=== PATIENT | female | born 1975 | race Caucasian/White ===

== ENCOUNTER 2022-07-31 16:55 | Inpatient (IN) | payer OTHER ==
[~2022-07-31] VITALS: Ht 162.6 cm; Wt 79.7 kg
[2022-07-31 17:33] LABS: BASOPHILS ABSOLUTE AUTO 0.03 K/mm3 (0.00-0.23); BASOPHILS PERCENT AUTO 0 % (0-2); EOSINOPHILS ABSOLUTE AUTO 0.01 K/mm3 (0.00-0.68); EOSINOPHILS PERCENT AUTO 0 % (0-6); IMMATURE GRAN ABSOLUTE AUTO 0.06 K/mm3 (0.00-0.10); IMMATURE GRAN PERCENT AUTO 1 % (0-1); LYMPHOCYTES ABSOLUTE AUTO 1.39 K/mm3 (0.84-5.20); LYMPHOCYTES PERCENT AUTO 14 % (21-46); MONOCYTES ABSOLUTE AUTO 1.14 K/mm3 (0.16-1.47); MONOCYTES PERCENT AUTO 12 % (4-13); Mean Corpuscular HGB 29.1 pg (26.0-34.0); Mean Corpuscular HGB Conc 29.9 g/dL (31.5-36.5); Mean Corpuscular Volume 97 fL (80-100); Mean Platelet Volume 12.1 fL (9.1-12.4); NEUTROPHILS ABSOLUTE AUTO 7.31 K/mm3 (1.96-9.15); NEUTROPHILS PERCENT AUTO 74 % (41-73); Platelet Count 113 K/mm3 (150-400); RDW Coefficient Variation 16.7 % (11.7-14.2); RDW Standard Deviation 58.6 fL (35.1-46.3); Red Blood Cell Count 1.48 M/mm3 (3.80-5.20); White Blood Cell Count 9.94 K/mm3 (4.00-11.30)
[2022-07-31 17:40] LABS: Hemoglobin 4.3 g/dL (11.5-16.0)
[2022-07-31 17:41] LABS: Hematocrit 14.4 % (33.0-51.0)
[2022-07-31 17:57] LABS: Magnesium, Blood 1.9 mg/dL (1.6-2.4)
[2022-07-31 18:06] LABS: International Normalized Ratio 1.46
[2022-07-31 18:06] LABS: Albumin, Blood 2.8 g/dL (3.4-5.0); Albumin/Globulin Ratio 0.8 (0.8-1.8); Bilirubin, Total 2.3 mg/dL (0.1-1.0); Bun/Creatinine Ratio 10.4 (12.0-20.0); Calcium, Blood 7.7 mg/dL (8.5-10.1); Creatinine, Blood 1.06 mg/dL (0.40-1.00); Globulin, Blood 3.4 g/dL (2.2-4.0); Potassium, Blood 3.7 mmol/L (3.5-5.5); Total Protein, Blood 6.2 g/dL (6.4-8.2)
--- NOTE | 2022-07-31 20:30 | NUR ---
PATIENT ARRIVED TO ICU 10 AT THIS TIME. ATTACHED TO MONITORS. BLOOD INFUSING. D5 1/2NS WITH K+ INFUSING. PATIENT SHAKEY AND PALE. ALERT AND ORIENTED X 4. FAMILY AT BEDSIDE. THIS RN ENCOURAGED AND ANSWERED ALL QUESTIONS. VSS.
[2022-07-31 21:31] LABS: Hematocrit 13.2 % (33.0-51.0); Hemoglobin 4.4 g/dL (11.5-16.0)
[2022-08-01 03:16] LABS: Hemoglobin 6.8 g/dL (11.5-16.0); Mean Corpuscular HGB 29.3 pg (26.0-34.0); Mean Platelet Volume 11.4 fL (9.1-12.4); NRBC ABSOLUTE 0.02 K/mm3 (0.00-0.02); NRBC Auto 0.6 /100 WBC (0.0-0.2); RDW Coefficient Variation 14.7 % (11.7-14.2); RDW Standard Deviation 45.9 fL (35.1-46.3); Red Blood Cell Count 2.32 M/mm3 (3.80-5.20); White Blood Cell Count 3.58 K/mm3 (4.00-11.30)
[2022-08-01 03:22] LABS: Mean Corpuscular Volume 86 fL (80-100)
[2022-08-01 03:23] LABS: Platelet Count 43 K/mm3 (150-400)
[2022-08-01 03:33] LABS: Albumin, Blood 2.2 g/dL (3.4-5.0); Albumin/Globulin Ratio 0.8 (0.8-1.8); Bilirubin, Total 3.6 mg/dL (0.1-1.0); Bun/Creatinine Ratio 14.2 (12.0-20.0); Calcium, Blood 7.1 mg/dL (8.5-10.1); Creatinine, Blood 0.78 mg/dL (0.40-1.00); Globulin, Blood 2.9 g/dL (2.2-4.0); Potassium, Blood 3.1 mmol/L (3.5-5.5); Total Protein, Blood 5.1 g/dL (6.4-8.2)
--- NOTE | 2022-08-01 05:24 | NUR ---
SHIFT SUMMARY: NEURO: CIWA PROTOCOL FOR ALCOHOL WITHDRAWAL. LAST CIWA 7. PATIENT HAVING TREMORS AND WEAKNESS. NO DIZZINESS. NO SEIZURES NOTED. ALERT AND ORIENTED X4 CARDIAC: VSS, SR, QT ELONGATED. AFEBRILE RESP: O2 >98% ON RA GI: SOFT NON-DISTENDED ABDOMEN : USED BEDPAN SUCCESSFULLY X3. ADEQUATE UOP. VAGINAL BLEEDING STILL OCCURING. WATERY AND PINK. SKIN: PALE AND BRUISED OTHER: RECEIVED 4 UNITS PRBC OVERNIGHT
[2022-08-01 08:30] LABS: Hematocrit 22.4 % (33.0-51.0); Hemoglobin 7.8 g/dL (11.5-16.0); Mean Corpuscular HGB 29.8 pg (26.0-34.0); Mean Corpuscular HGB Conc 34.8 g/dL (31.5-36.5); Mean Corpuscular Volume 86 fL (80-100); Mean Platelet Volume 10.6 fL (9.1-12.4); RDW Coefficient Variation 15.5 % (11.7-14.2); RDW Standard Deviation 46.7 fL (35.1-46.3); Red Blood Cell Count 2.62 M/mm3 (3.80-5.20); White Blood Cell Count 3.49 K/mm3 (4.00-11.30)
[2022-08-01 08:35] LABS: Platelet Count 45 K/mm3 (150-400)
[2022-08-01 08:49] LABS: Bun/Creatinine Ratio 14.3 (12.0-20.0); Calcium, Blood 7.3 mg/dL (8.5-10.1); Creatinine, Blood 0.77 mg/dL (0.40-1.00); Magnesium, Blood 2.3 mg/dL (1.6-2.4); Phosphorus, Blood 1.6 mg/dL (2.5-4.9); Potassium, Blood 3.7 mmol/L (3.5-5.5)
[2022-08-01 10:11] LABS: D-Dimer, Quantitative 1.1 mg/L FEU (0.00-0.52); International Normalized Ratio 1.39; Prothrombin Time Results 14.3 Sec (9.7-11.5)
--- NOTE | 2022-08-01 10:36 | NUR ---
UPDATE PT CALLS FOR ASSITANCE TO COMMODE. PT TRANSFERS WITH MINIMAL ASSISTANCE. PT CONTINUES TO HAVE BLEEDING. PT SATURATED PAD WITH LIGHT RED BLOOD. PT DENIES ANY DIZZINESS, NAUSEA. BP STABLE. HR NSR 90'S. MILD TREMORS NOTED. WILL CONTINUE TO MONITOR CLOSELY
--- NOTE | 2022-08-01 13:33 | NUR ---
UPDATE PT UP TO BSC TO VOID. PAD IS SATURATED WITH LIGHT RED BLOOD AND TWO CLOTS NOTED. WILL CONTINUE TO MONITOR CLOSELY
[2022-08-01 15:12] LABS: Hematocrit 20.8 % (33.0-51.0); Hemoglobin 7.3 g/dL (11.5-16.0); Mean Corpuscular HGB 30.3 pg (26.0-34.0); Mean Corpuscular HGB Conc 35.1 g/dL (31.5-36.5); Mean Corpuscular Volume 86 fL (80-100); Mean Platelet Volume 11.1 fL (9.1-12.4); NRBC ABSOLUTE 0.02 K/mm3 (0.00-0.02); NRBC Auto 0.6 /100 WBC (0.0-0.2); RDW Coefficient Variation 16.3 % (11.7-14.2); RDW Standard Deviation 50.4 fL (35.1-46.3); Red Blood Cell Count 2.41 M/mm3 (3.80-5.20); White Blood Cell Count 3.36 K/mm3 (4.00-11.30)
[2022-08-01 15:28] LABS: D-Dimer, Quantitative 0.82 mg/L FEU (0.00-0.52); International Normalized Ratio 1.37; Prothrombin Time Results 14.1 Sec (9.7-11.5)
[2022-08-01 15:31] LABS: Platelet Count 44 K/mm3 (150-400)
--- NOTE | 2022-08-01 15:52 | NUR ---
UPDATE PT REMAINS ALERT AND ORIENTED. VS STABLE. HR NSR 90'S. BP STABLE. PT HAS DENIED ANY PAIN. PT CONTINUES TO HAVE VAGINAL BLEEDING. STATUS CHANGED TO PCU. REPORT HAS BEEN CALLED TO RANDELL RODGERS. PT TO BE TAKEN OVER BY . FAMILY NOTIFIED
--- NOTE | 2022-08-01 17:22 | NUR ---
SHIFT SUMMARY PT ARRIVED TO PCU APPROX. 1400 VIA WHEELCHAIR W/ FAMILY AT BEDSIDE. VSS. SHE DENIED FEELINGS OF PAIN, NAUSEA/VOMITTING, HEADACHE. NO VISIBLE SIGNS OF TREMORS AND SHE DENIED AGITATION. DW W/ 11/04 NS KCL RESTARTED PER ORDERS. NO VISIBLE SIGNS OF CLAMMINESS/SWEATING. SHE IS ALERT AND ORIENTED X 4, PT AND EMERSON WERE ORIENTED TO PCU ROOM. SHE DENIED FEELING LIGHTHEADEDNESS/DIZZY. IV IN RIGHT FOREARM IS SALINE LOCKED. PER REPORT SHE IS BR W/ BATHROOM PRIVILEGES. SEIZURE PRECAUTIONS IN PLACE. PT IS NOW EATING DINNER AND WATCHING T.V WITH HER EMERSON.
[2022-08-02 04:10] LABS: BASOPHILS ABSOLUTE AUTO 0.02 K/mm3 (0.00-0.23); BASOPHILS PERCENT AUTO 1 % (0-2); EOSINOPHILS ABSOLUTE AUTO 0.03 K/mm3 (0.00-0.68); EOSINOPHILS PERCENT AUTO 1 % (0-6); Hematocrit 21.5 % (33.0-51.0); Hemoglobin 7.2 g/dL (11.5-16.0); IMMATURE GRAN ABSOLUTE AUTO 0.02 K/mm3 (0.00-0.10); IMMATURE GRAN PERCENT AUTO 1 % (0-1); LYMPHOCYTES ABSOLUTE AUTO 0.88 K/mm3 (0.84-5.20); LYMPHOCYTES PERCENT AUTO 29 % (21-46); MONOCYTES ABSOLUTE AUTO 0.42 K/mm3 (0.16-1.47); MONOCYTES PERCENT AUTO 14 % (4-13); Mean Corpuscular HGB 29.5 pg (26.0-34.0); Mean Corpuscular HGB Conc 33.5 g/dL (31.5-36.5); Mean Corpuscular Volume 88 fL (80-100); NEUTROPHILS ABSOLUTE AUTO 1.66 K/mm3 (1.96-9.15); NEUTROPHILS PERCENT AUTO 55 % (41-73); RDW Coefficient Variation 16.6 % (11.7-14.2); RDW Standard Deviation 51.2 fL (35.1-46.3); Red Blood Cell Count 2.44 M/mm3 (3.80-5.20); White Blood Cell Count 3.03 K/mm3 (4.00-11.30)
[2022-08-02 04:21] LABS: Platelet Count 46 K/mm3 (150-400)
[2022-08-02 04:28] LABS: International Normalized Ratio 1.31; Prothrombin Time Results 13.5 Sec (9.7-11.5)
[2022-08-02 04:30] LABS: Albumin, Blood 2.1 g/dL (3.4-5.0); Albumin/Globulin Ratio 0.7 (0.8-1.8); Bilirubin, Total 1.9 mg/dL (0.1-1.0); Bun/Creatinine Ratio 10.9 (12.0-20.0); Creatinine, Blood 0.73 mg/dL (0.40-1.00); Globulin, Blood 3.2 g/dL (2.2-4.0); Magnesium, Blood 2.1 mg/dL (1.6-2.4); Phosphorus, Blood 2.2 mg/dL (2.5-4.9); Potassium, Blood 3.6 mmol/L (3.5-5.5); Total Protein, Blood 5.3 g/dL (6.4-8.2)
--- NOTE | 2022-08-02 05:50 | NUR ---
SHIFT SUMMARY NO ACUTE EVENTS OVERNIGHT. PT ALERT AND ORIENTED X4. AFEBRILE. BP STABLE. ON RA SATS OVER 98%. NO C/O PAIN OR DISCOMFORT. INDEPENDENT FOR ADL'S. PT REPORTS MINIMAL VAGINAL BLEEDING. LITTLE CHANGE IN HGB, 7.3 TO 7.2. RESTING COMFORTABLY MOST THE NIGHT. IN BED SLEEPING WITH CALL ALARM AT SIDE, WILL CONTINUE TO MONITOR UNTIL REPORT GIVEN TO ONCOMING RN
[2022-08-02] MEDS ORDERED: MEDR5 PO (09:51)
[2022-08-02] MEDS ORDERED: MIRALAX17 GM PO (09:52)
[2022-08-02] MEDS ORDERED: FERSU300 PO (09:52)
[2022-08-02] MEDS ORDERED: B-1100 M1 PO (14:06)
--- NOTE | 2022-08-02 14:55 | NUR ---
DISCHARGE NOTE PT ALERT AND ORIENTED X 4, VSS. SHE REPORTED MINIMAL VAGINAL BLEEDING AND DENIED FEELING DIZZY, LIGHTHEADED, SOB, OR PAINFUL. BILATERAL IV'S REMOVED. THIS NURSE PROVIDED PT AND PT DAUGHTER AND DISCHARGE INSTRUCTIONS INCLUDING NEED TO ESTABLISH PCP, FOLLOW UP APPOINTMENT W. OBGYSures[facility], WELL NEED TO USE DR. INFANTE TO HAVE CMP LABS DRAWN. PT EDUCATION REGARDING MEDICATIONS PROVIDED. MEDICATIONS FAXED TO [facility] PER PT REQUEST. PT LEFT PCU VIA WHEELCHAIR AT APPROX. 1436 ESCORTED BY FAMILY AND THIS NURSE. ALL OF PT BELONGINGS WENT WITH PT.
== END 2022-08-02 14:40 | disposition home or self-care (01) | DRG 812 ==
LOC: ER 16:55 → PCU 19:10 → ICUW 19:10 → PCU 08-01 16:10
PROVIDERS: Emergency Medicine; Family Medicine; Hospitalist; Physician Assistant; ADMIT Internal Medicine
PROC: 30233N1 Transfusion of Nonautologous Red Blood Cells into Peripheral Vein, Percutaneous Approach (ICD-10-PCS; principal; 2022-07-31)
DX: D62 Acute posthemorrhagic anemia (principal); F10.239 Alcohol dependence with withdrawal, unspecified; E87.1 Hypo-osmolality and hyponatremia; E87.2 Acidosis; N93.8 Other specified abnormal uterine and vaginal bleeding; G40.409 Other generalized epilepsy and epileptic syndromes, not intractable, without status epilepticus; E83.39 Other disorders of phosphorus metabolism; N92.0 Excessive and frequent menstruation with regular cycle; D69.6 Thrombocytopenia, unspecified; D70.9 Neutropenia, unspecified; W18.30XA Fall on same level, unspecified, initial encounter; Y90.0 Blood alcohol level of less than 20 mg/100 ml; E87.8 Other disorders of electrolyte and fluid balance, not elsewhere classified
CPT/HCPCS: 36415; 36430; 76830; 76856; 80048; 80053; 82947; 83605; 83735; 84100; 84146; 84703; 85014; 85018; 85025; 85027; 85379; 85384; 85610; 85730; 86850; 86900; 86901; 86923; 87040; 93005; 93010; 96365; 96367; 96375; 99285-25; A9270; G0480; J2060; J2916; J3411; J3475; J3480; J7030; J7050; J7060; J7120; P9016

== ENCOUNTER 2025-04-08 16:40 | Emergency (ER) | payer OTHER ==
[~2025-04-08] VITALS: Ht 165.1 cm; Wt 65.8 kg
[~2025-04-08 16:40] MED LIST: B-1100 M1 PO; FERSU300 PO; MEDR5 PO; MIRALAX17 GM PO
[2025-04-08 17:35] LABS: BASOPHILS ABSOLUTE AUTO 0.02 K/mm3 (0.00-0.23); BASOPHILS PERCENT AUTO 0 % (0-2); EOSINOPHILS PERCENT AUTO 0 % (0-6); Hematocrit 29.2 % (33.0-51.0); Hemoglobin 10.3 g/dL (11.5-16.0); IMMATURE GRAN ABSOLUTE AUTO 0.03 K/mm3 (0.00-0.10); IMMATURE GRAN PERCENT AUTO 0 % (0-1); LYMPHOCYTES PERCENT AUTO 16 % (21-46); MONOCYTES PERCENT AUTO 12 % (4-13); Mean Corpuscular HGB 34.7 pg (26.0-34.0); Mean Corpuscular HGB Conc 35.3 g/dL (31.5-36.5); Mean Corpuscular Volume 98 fL (80-100); Mean Platelet Volume 12.7 fL (9.1-12.4); NEUTROPHILS PERCENT AUTO 72 % (41-73); Platelet Count 56 K/mm3 (150-400); RDW Coefficient Variation 13.2 % (11.7-14.2); RDW Standard Deviation 47.3 fL (35.1-46.3); Red Blood Cell Count 2.97 M/mm3 (3.80-5.20); White Blood Cell Count 6.95 K/mm3 (4.00-11.30)
[2025-04-08 17:58] LABS: Albumin, Blood 3.5 g/dL (3.4-5.0); Albumin/Globulin Ratio 0.8 (0.8-1.8); Bun/Creatinine Ratio 44.4 (12.0-20.0); Calcium, Blood 9.6 mg/dL (8.5-10.1); Creatinine, Blood 1.24 mg/dL (0.40-1.00); Globulin, Blood 4.3 g/dL (2.2-4.0); Potassium, Blood 2.9 mmol/L (3.5-5.5); Total Protein, Blood 7.8 g/dL (6.4-8.2)
[2025-04-08] MEDS ORDERED: Pantoprazole Sodium 40 MG Injection IV ONE (18:05)
[2025-04-08] MEDS ORDERED: Octreotide Acetate 50 MCG in NS 50 ML IV ONE (19:15)
[2025-04-08] MEDS ORDERED: CefTRIAXone Sodium 1,000 MG in NS 100 ML IV ONE (19:15)
[2025-04-08] MEDS ORDERED: NS 1,000 ML IV SCH (19:45)
[2025-04-08 19:52] LABS: International Normalized Ratio 1.31; Prothrombin Time Results 14.1 Sec (9.7-11.5)
[2025-04-08] MEDS ORDERED: NS 500 ML IV SCH (20:50)
[2025-04-08 21:22] LABS: Calcium, Ionized (POC) 0.98 mmol/L (1.10-1.46); Chloride (POC) 95 mmol/L (98-108); Creatinine (POC) 1.1 mg/dL (0.6-1.0); Glucose (ISTAT POC) 112 mg/dL (70-99); Hemoglobin (POC) 8.2 g/dL (12.0-16.0); Potassium (POC) 3.1 mmol/L (3.5-5.5); Sodium (POC) 135 mmol/L (135-148); Total CO2 (POC) 25 mmol/L (21-32)
[2025-04-08 21:26] LABS: Hemoglobin 8.3 g/dL (11.5-16.0)
[2025-04-08] MEDS ORDERED: Potassium Chl 20MEQ/Water100ML 100 ML IV SCH (21:45)
[2025-04-08] MEDS ORDERED: Potassium Chloride 40 MEQ in NS 250 ML IV ONE (21:50)
[2025-04-08 23:00] VITALS: BP 104/71
== END 2025-04-08 23:10 | disposition short-term general hospital (02) ==
LOC: ER 16:40
PROVIDERS: Emergency Medicine
DX: I85.01 Esophageal varices with bleeding (principal); F17.200 Nicotine dependence, unspecified, uncomplicated; Z79.899 Other long term (current) drug therapy
CPT/HCPCS: 36430; 71045; 74177; 80047; 80053; 80320; 82272; 85014; 85018; 85025; 85610; 85730; 86850; 86900; 86901; 86923; 93005; 93010; 96365-59; 96368; 96375; 99285-25; J0696; J2354; J2470; J3480; J7030; J7050; P9016; Q9967

== ENCOUNTER → 2025-06-03 | Outpatient (CLI) | payer OTHER ==
[2025-06-03 16:22] LABS: BASOPHILS ABSOLUTE AUTO 0.03 K/mm3 (0.00-0.23); BASOPHILS PERCENT AUTO 1 % (0-2); EOSINOPHILS ABSOLUTE AUTO 0.16 K/mm3 (0.00-0.68); EOSINOPHILS PERCENT AUTO 5 % (0-6); Hematocrit 37.6 % (33.0-51.0); Hemoglobin 12.4 g/dL (11.5-16.0); IMMATURE GRAN ABSOLUTE AUTO 0.01 K/mm3 (0.00-0.10); IMMATURE GRAN PERCENT AUTO 0 % (0-1); LYMPHOCYTES ABSOLUTE AUTO 0.72 K/mm3 (0.84-5.20); LYMPHOCYTES PERCENT AUTO 22 % (21-46); MONOCYTES ABSOLUTE AUTO 0.27 K/mm3 (0.16-1.47); MONOCYTES PERCENT AUTO 8 % (4-13); Mean Corpuscular HGB Conc 33.0 g/dL (31.5-36.5); Mean Corpuscular Volume 92 fL (80-100); NEUTROPHILS ABSOLUTE AUTO 2.10 K/mm3 (1.96-9.15); NEUTROPHILS PERCENT AUTO 64 % (41-73); NRBC ABSOLUTE 0.00 K/mm3 (0.00-0.02); NRBC Auto 0.0 /100 WBC (0.0-0.2); RDW Coefficient Variation 16.8 % (11.7-14.2); RDW Standard Deviation 56.4 fL (35.1-46.3)
[2025-06-03 16:28] LABS: Platelet Count 31 K/mm3 (150-400)
[2025-06-03 19:56] LABS: Alanine Aminotransfer (ALT/SGP 47.0 U/L (12-78); Albumin, Blood 3.8 g/dL (3.4-5.0); Albumin/Globulin Ratio 0.8 (0.8-1.8); Anion Gap 7.0 mmol/L (3-11); Aspartate Aminotrans (AST/SGOT 40.0 U/L (12-37); Bilirubin, Total 1.0 mg/dL (0.1-1.0); Blood Urea Nitrogen 15.0 mg/dL (8-24); CO2, Blood 24.0 mmol/L (21-32); Calcium, Blood 9.8 mg/dL (8.5-10.1); Chloride, Blood 110.0 mmol/L (98-108); Creatinine, Blood 0.61 mg/dL (0.40-1.00); Globulin, Blood 5.0 g/dL (2.2-4.0); Glucose, Blood 106.0 mg/dL (70-99); Potassium, Blood 3.9 mmol/L (3.5-5.5); Sodium, Blood 137.0 mmol/L (136-145); Total Protein, Blood 8.8 g/dL (6.4-8.2)
== END ==
LOC: LAB 14:24 → LAB SHORT 14:24
PROVIDERS: Student in an Organized Health Care Education/Training Program
DX: D61.818 Other pancytopenia (principal)
CPT/HCPCS: 80053; 85025